=== PATIENT | male | born 1955 | race Caucasian/White ===

== ENCOUNTER 2021-01-04 13:46 | Day surgery (SDCO) | payer MEDICARE, OTHER ==
[~2021-01-04] VITALS: Ht 172.7 cm; Wt 105.9 kg
[2021-01-04 15:55] LABS: IRON % SATURATION 31.6 %SAT (20-50)
[2021-01-04 15:57] LABS: ALBUMIN 3.1 g/dL (3.4-5.0); BILIRUBIN - TOTAL 0.6 mg/dL (0.2-1.0); BUN/CREAT RATIO (CALC) 11.2 RATIO; CREATININE 0.89 mg/dL (0.67-1.17); GLOBULIN (CALCULATION) 4.5 g/dL; MAGNESIUM 1.5 mg/dL (1.8-2.4); POTASSIUM 4.1 mmol/L (3.5-5.1); TOTAL PROTEIN 7.6 g/dL (6.4-8.2)
[2021-01-04 16:01] LABS: PRO-BNP 347 pg/mL (<125)
[2021-01-04 16:04] LABS: LACTIC ACID 1.1 mmol/L (0.4-1.9)
[2021-01-04 16:10] LABS: INR 1.15 (0.9-1.2); PTT 33.7 SECONDS (22.2-34.7)
[2021-01-04 16:11] LABS: BASOPHIL 0.9 % (0-2); D-DIMER 0.83 ug/mLFEU (0.00-0.41); EOSINOPHIL 11.6 % (0-7); HCT 43.8 % (42.0-52.0); HGB 15.2 g/dl (13.2-18.0); LYMPHOCYTE 22.6 % (15-48); MCH 33.9 pg (25.0-31.0); MCHC 34.7 g/dL (32.0-36.0); MCV 97.8 fL (78.0-100.0); MONOCYTE 12.5 % (0-12); MPV 9.6 fL (6.0-9.5); NRBC 0; PLT 150 K/uL (150-400); RBC 4.48 M/uL (4.70-6.00); RDW 14.3 % (11.5-14.0); WBC 4.6 K/uL (4.0-10.5)
[2021-01-04 17:19] LABS: BILIRUBIN NEGATIVE (NEGATIVE); BLOOD NEGATIVE Ery/uL (NEGATIVE); CLARITY CLEAR (CLEAR); COLOR YELLOW (YELLOW); GLUCOSE (U) NORMAL (NORMAL); LEUKOCYTES NEGATIVE Leu/uL (NEGATIVE); NITRITE NEGATIVE (NEGATIVE); PROTEIN NEGATIVE (NEGATIVE)
[2021-01-04] MEDS ORDERED: LEVOTHYROXINE100 MCG PO (18:10)
[2021-01-04] MEDS ORDERED: SPIRIVA RESPIMAT4 GM INH (18:11)
[2021-01-04] MEDS ORDERED: DOXAZOSIN MESYLA4 MG PO (18:12)
[2021-01-04] MEDS ORDERED: BENAZEPRIL HCL40 MG PO (18:12)
[2021-01-04] MEDS ORDERED: LASIX20 MG PO (18:13)
[2021-01-04] MEDS ORDERED: DULERA 200 MCG8.8 GM INH ×2 (18:13→18:31)
[2021-01-04] MEDS ORDERED: SPIRONOLACTONE25 M1 PO (18:14)
[2021-01-04] MEDS ORDERED: ASPIR-TRIN325 MG PO (18:32)
--- NOTE | 2021-01-05 01:15 | NUR ---
01/04/21 @ 0880 Telemetry #17 showing NSR VR 76. AK: 0.32, QRS: 0.10.
--- NOTE | 2021-01-05 01:16 | NUR ---
01/05/21 @ 0114 Telemetry showing sinus bradycardia VR 56, prolonged ZE at 0.32, QRS 0.10.
--- NOTE | 2021-01-05 04:24 | NUR ---
01/05/21 @ 0404 TELEMETRY #17 SHOWING SINUS BRADYCARDIA VR 58 WITH PROLONGED ZE OF 0.36, QRS: .06.
[2021-01-05 05:35] LABS: HCT 42.9 % (42.0-52.0); HGB 15.3 g/dl (13.2-18.0); MCH 34.2 pg (25.0-31.0); MCHC 35.7 g/dL (32.0-36.0); MPV 9.2 fL (6.0-9.5); RBC 4.47 M/uL (4.70-6.00)
[2021-01-05 05:58] LABS: WBC 2.1 K/uL (4.0-10.5)
[2021-01-05 07:13] LABS: CREATININE 0.81 mg/dL (0.67-1.17); POTASSIUM 5.2 mmol/L (3.5-5.1)
[2021-01-05] MEDS ORDERED: FOLIC ACID1 MG PO (12:51)
[2021-01-05] MEDS ORDERED: VITAMIN B-1100 M1 PO (12:51)
[2021-01-05] MEDS ORDERED: VENTOLIN HFA IN18 GM INH (12:51)
[2021-01-05] MEDS ORDERED: MEDROL 4MG DOSEP4 MG PO (12:51)
--- NOTE | 2021-01-05 13:59 | NUR ---
SET UP PT. HOME O2 WITH [facility] IN [place]. PT. IS CURRENTLY A CLIENT WITH [facility] FOR HIS CPAP. DR. RAM SIGNED [facility] FOR HOME O2 AND CPAP SUPPLIES. [facility]O'S FAXED BACK TO [facility]. PHONE NUMBER FOR [facility] IS [phone] AND FAX IS [phone].
== END 2021-01-05 15:22 | disposition home or self-care (01) ==
LOC: FER 13:46 → FMS 17:43 → FER 17:43 → FMS 17:43
PROVIDERS: Emergency Medicine; ADMIT Hospitalist
DX: J96.21 Acute and chronic respiratory failure with hypoxia (principal); J96.22 Acute and chronic respiratory failure with hypercapnia; J44.1 Chronic obstructive pulmonary disease with (acute) exacerbation; F17.210 Nicotine dependence, cigarettes, uncomplicated; I10 Essential (primary) hypertension; E66.01 Morbid (severe) obesity due to excess calories; I44.0 Atrioventricular block, first degree; Z79.82 Long term (current) use of aspirin; Z79.899 Other long term (current) drug therapy; Z20.822 Contact with and (suspected) exposure to COVID-19
CPT/HCPCS: 36415; 36600; 71275; 80048; 80053; 81003; 82803; 83540; 83550; 83605; 83735; 83880; 84145; 84484; 85025; 85379; 85610; 85730; 87040; 93005; 94640; 94664; G0378; J1650; J2060; J2920; J2930; Q9967; U0002